=== PATIENT | female | born 1985 | race Caucasian/White ===

== ENCOUNTER 2017-12-11 11:36 | Emergency (ER) | payer OTHER ==
[~2017-12-11] VITALS: Ht 167.6 cm; Wt 81.4 kg
[~2017-12-11 11:36] MED LIST: ONDA4TAB7 SL; TYLOTC500 PO; [UNRECOGNIZED DRUG - CODE] PO; [UNRECOGNIZED DRUG - REMARK] PO
[2017-12-11 11:47] VITALS: TEMP 36.5; Ht 167.6 cm; Wt 81.4 kg
[2017-12-11] MEDS ORDERED: HYDR-5688 PO (12:25)
[2017-12-11] MEDS ORDERED: CYCL10TA6 PO (12:25)
[2017-12-11] MEDS ORDERED: NAPR1TAB9 PO (12:30)
[2017-12-11 12:36] VITALS: BP 137/80; PULSE 73; O2SAT 98
--- NOTE | 2017-12-11 15:47 | EMERGENCY ROOM VISIT NOTE ---
ED Visit Note First contact with patient: 12:02 CHIEF COMPLAINT: Low back pain HISTORY OF PRESENT ILLNESS: This 32-year-old female patient complains of pain in the left low back which began after working out at the gym. She states she was doing some squats and some lunges as well as some stretching. She had 8 pound dumbbells. She denies any pain at the time of working out. She did go to the grocery store after and had some difficulty getting out of her car. Pain is persisted. She has a history of chronic low back pain with right leg radiculopathy. That is unchanged. She now has symptoms in the left buttock. The pain was gradual in onset, is now constant and worse with movement. Denies any bowel or bladder difficulties. There has been no left leg numbness or weakness. No recent direct trauma. No vomiting or abdominal pain. pain is 7/ 10. She did take some Tylenol without relief. REVIEW OF SYSTEM: HEENT: No dizziness, visual problems, hearing loss, or tinnitus. There is no difficulty swallowing and no oral lesions are present. LYMPH: No adenopathy. PULMONARY: No cough, shortness of breath, sputum production or hemoptysis. CARDIOVASCULAR: No chest pain, palpitations, shortness of breath or peripheral edema. GASTROINTESTINAL: No diarrhea, constipation, nausea, vomiting, or abdominal pain. GENITOURINARY: No dysuria, frequency, urgency or nocturia. NEUROLOGIC: No weakness, muscle tenderness, epilepsy or history of neurological problems. MUSCULOSKELETAL: No history of joint tenderness/swelling. No history of arthritis or arthralgias. SKIN: No rashes or lesions. ENDOCRINE: No history of diabetes, thyroid disorders, or abnormal hair growth. PMH: Supplemental sheet was reviewed and signed. Previous surgeries: None Medical history: Benign Family history: Noncontributory. Current medications: None Allergies: NKDA SOCIAL HISTORY: Patient lives at home. [employer] student. No tobacco use, no EtOH use. PHYSICAL EXAM: Vital Signs: Afebrile. Reviewed and filed in patient's chart. General: Well-developed, well-nourished, young female, in obvious discomfort. No acute distress. She is sitting on the bed. Alert and oriented. Skin:Warm and dry with good turgor. No rashes or lesions. No ecchymosis or erythema. The patient is not diaphoretic. No abrasions. NECK: Supple, non-tender. Musculoskeletal: There is no tenderness in the paraspinous muscles in the lumbar area. No tenderness over the spinous processes or discs spaces of the lumbar vertebrae. She has focal discomfort with palpation over the left SI joint. Minimal discomfort over the right SI joint. Left-sided pain extends into the sciatic notch. No pain with palpation over the ischial tuberosity or greater trochanter. Range of motion of the back is limited secondary to pain, especially with rotation. Lower extremities have normal strength including dorsi -flexion and plantar flexion of the feet. Negative bilateral straight leg raises. Neurologic: normal and symmetrical knee and ankle reflexes. Gross sensation is intact across the lower extremities by soft touch. Peripheral pulses are 2+. DIAGNOSIS: Left SI joint dysfunction DISCHARGE INSTRUCTIONS AND TREATMENT: Patient was educated regarding today's findings. Conservative care measures were discussed. Gentle stretching daily. Ice to the back intermittently over the next 3 days, and then use moist heat. Avoid any heavy lifting x5 days. See your own doctor or an orthopedist in 4 - 5 days if you are not improving. Follow-up with [facility] on Wednesday for a physical therapy referral. Mayking 5 mg every 6 hours if needed for the pain. Driving precautions were given. Prescription was also provided for Flexeril 10 mg every 8 hours as needed for further pain/spasm. Add Naprosyn 440 mg mg every 12 hours with food. Return to the ED for any loss of bowel or bladder control. She was reassured that I do not suspect worsening disc disease, fracture, or cauda equina syndrome. Current/Historical Medications Scheduled PRN Cyclobenzaprine Hcl (Flexeril), 10 MG PO TID PRN for Pain Hydrocodone/Acetaminophen 5MG/325MG (Mayking 5MG/325MG), 1-2 TABLET PO Q6H PRN for Pain Naproxen (Aleve), 220 MG PO UD PRN for Pain Allergies Coded Allergies: Gelatin (Unverified Adverse Reaction, Unknown, RELIGOUS PURPOSES, 12/11/17) CANNOT CONSUME ANYTHING THAT CONTAINS GELATIN DUE TO RELIGOUS PURPOSES Vital Signs Date Time Temp Pulse Resp B/P (MAP) Pulse Ox O2 Delivery O2 Flow Rate FiO2 12/11/17 12:36 73 18 137/80 98 12/11/17 11:47 36.5 65 18 142/89 97 Room Air Departure Information Impression Primary Impression: Disorder of left sacroiliac joint Dispostion Home / Self-Care Condition GOOD Prescriptions Cyclobenzaprine Hcl (FLEXERIL) 10 Mg Tab 10 MG PO TID Y for Pain, #9 TAB Prov: Jose Alfredo Go,P.A. 12/11/17 Hydrocodone/Acetaminophen 5MG/325MG (Mayking 5MG/325MG) Tab 1-2 TABLET PO Q6H Y for Pain, #10 TAB For Initial Treatment Prov: Jose Alfredo Go,P.A. 12/11/17 Forms HOME CARE DOCUMENTATION FORM, SPECIAL NARCOTICS INSTRUCTIONS, IMPORTANT VISIT INFORMATION Patient Instructions My [facility] [employer] Additional Instructions Gentle stretching daily Avoid any heavy lifting or rotation Continue Naprosyn 2 tablets twice a day with food Flexeril 10 mg can be used every 8 hours as needed for pain/spasm-no driving Mayking 1-2 tablets every 6 hours as needed for more severe pain-no driving Follow-up with [facility] on Wednesday for a physical therapy referral Ice intermittently to the low back 3 days, then switch to moist heat. Return to the ED for any acute worsening of symptoms or loss of bowel/bladder control.
== END 2017-12-11 12:37 | disposition home or self-care (01) ==
LOC: C.EDB 11:38 → C.EDD 12:37
DX: M53.3 Sacrococcygeal disorders, not elsewhere classified (principal); M99.04 Segmental and somatic dysfunction of sacral region; G89.29 Other chronic pain